=== PATIENT | female | born 1935 | race Caucasian/White ===

== ENCOUNTER 2016-11-09 15:15 | Outpatient (RCR) | payer OTHER | END 2016-11-28 | disposition home or self-care (01) | LOC: PTY 15:15 | DX: M54.42 Lumbago with sciatica, left side (principal); M54.41 Lumbago with sciatica, right side | CPT/HCPCS: 97110; 97140; 97162; G0283 ==

== ENCOUNTER 2016-12-23 11:00 | Outpatient (RCR) | payer OTHER | END 2016-12-29 | disposition home or self-care (01) | LOC: PTY 11:00 | DX: M54.42 Lumbago with sciatica, left side (principal); M54.41 Lumbago with sciatica, right side | CPT/HCPCS: 97110; 97140; G0283 ==

== ENCOUNTER 2016-12-31 09:40 | Outpatient (RCR) | payer OTHER | END 2017-01-28 | disposition home or self-care (01) | LOC: PTY 09:40 | DX: M54.42 Lumbago with sciatica, left side (principal); M54.41 Lumbago with sciatica, right side | CPT/HCPCS: 97110; 97140; G0283 ==

== ENCOUNTER 2017-10-27 08:45 | Outpatient (RCR) | payer OTHER | END 2017-10-29 | disposition home or self-care (01) | LOC: PTY 08:45 | PROVIDERS: ATTEND Internal Medicine | DX: M25.512 Pain in left shoulder (principal) ==

== ENCOUNTER 2017-11-03 09:00 | Outpatient (RCR) | payer OTHER | END 2017-11-28 | disposition home or self-care (01) | LOC: PTY 09:00 | PROVIDERS: ATTEND Internal Medicine | DX: M25.512 Pain in left shoulder (principal) ==